=== PATIENT | female | born 1980 | race Caucasian/White ===

== ENCOUNTER 2019-10-20 06:29 | Day surgery (SDC) | payer BC ==
[~2019-10-20 06:29] MED LIST: Lidocaine 1%/Sod Bicarbonate in NS 8.4% 1 ML Syringe IDERM PRN; Sodium Chloride 0.9% 10 ML Syringe FLUSH PRN
[2019-10-20] MEDS: Lactated Ringers 1,000 ML IV SCH ×2 (06:50→12:20)
[2019-10-20] MEDS ORDERED: Lidocaine 1% with EPINEPHrine 1:100,000 20 ML MDV ONE (07:00)
[2019-10-20] MEDS ORDERED: Sodium Chloride 0.9% 20 ML ONE (07:00)
[2019-10-20] MEDS ORDERED: Scopolamine 1.5 MG Transdermal Patch TOP ONE (07:14)
--- NOTE | 2019-10-20 07:16 | PCM.PREANE ---
Preanesthetic Assessment - Procedure Proposed Procedure: TVH - Anesthesia/Transfusion/Family Hx Anesthesia History: Prior Anesthesia Reaction (nausea) Family History of Anesthesia Reaction: No Transfusion History: No Prior Transfusion(s) - Review of Systems General: No Symptoms Pulmonary: No Symptoms Cardiovascular: No Symptoms Gastrointestinal: No Symptoms Neurological: No Symptoms Other: Reports: None - Physical Assessment NPO Status Date: 10/19/19 NPO Status Time: 22:30 Vital Signs: Last Vital Signs Temp 36.7 C 10/20/19 06:40 Pulse 79 10/20/19 06:40 Resp 16 10/20/19 06:40 BP 104/70 10/20/19 06:40 Pulse Ox 98 10/20/19 06:40 Height: 1.63 m Weight: 73.482 kg ASA Class: 2 Mental Status: Alert & Oriented x3 Airway Class: Mallampati = 1 Dentition: Reports: Normal Dentition Thyro-Mental Finger Breadths: 3 Mouth Opening Finger Breadths: 3 ROM/Head Extension: Full Lungs: Clear to Auscultation, Normal Respiratory Effort Cardiovascular: Regular Rate, Regular Rhythm - Lab Values: Laboratory Last Values WBC 5.70 K/mm3 (3.98-10.04) 10/20/19 06:51 RBC 4.29 M/mm3 (3.98-5.22) 10/20/19 06:51 Hgb 12.3 gm/dl (11.2-15.7) 10/20/19 06:51 Hct 38.1 % (34.1-44.9) 10/20/19 06:51 MCV 88.8 fl (79.4-94.8) 10/20/19 06:51 MCH 28.7 pg (25.6-32.2) 10/20/19 06:51 MCHC 32.3 g/dl (32.2-35.5) 10/20/19 06:51 RDW Std Deviation 45.1 fL (36.4-46.3) 10/20/19 06:51 Plt Count 286 K/mm3 (182-369) 10/20/19 06:51 MPV 9.0 fl (9.4-12.3) L 10/20/19 06:51 Neut % (Auto) 57.1 % (34.0-71.1) 10/20/19 06:51 Lymph % (Auto) 32.1 % (19.3-51.7) 10/20/19 06:51 [place] % (Auto) 8.1 % (4.7-12.5) 10/20/19 06:51 Eos % (Auto) 1.8 (0.7-5.8) 10/20/19 06:51 Baso % (Auto) 0.7 % (0.1-1.2) 10/20/19 06:51 Neut # (Auto) 3.26 K/mm3 (1.56-6.13) 10/20/19 06:51 Lymph # (Auto) 1.83 K/mm3 (1.18-3.74) 10/20/19 06:51 [place] # (Auto) 0.46 K/mm3 (0.24-0.36) H 10/20/19 06:51 Eos # (Auto) 0.10 K/mm3 (0.04-0.36) 10/20/19 06:51 Baso # (Auto) 0.04 K/mm3 (0.01-0.08) 10/20/19 06:51 Urine Color Yellow (Yellow) 10/20/19 06:37 Urine Appearance Clear (Clear) 10/20/19 06:37 Urine pH 6.5 (5.0-8.0) 10/20/19 06:37 Ur Specific [place] 1.025 (1.005-1.030) 10/20/19 06:37 Urine Protein Negative (Negative) 10/20/19 06:37 Urine Glucose (UA) Negative (Negative) 10/20/19 06:37 Urine Ketones Negative (Negative) 10/20/19 06:37 Urine Occult Blood Negative (Negative) 10/20/19 06:37 Urine Nitrite Negative (Negative) 10/20/19 06:37 Urine Bilirubin Negative (Negative) 10/20/19 06:37 Urine Urobilinogen 0.2 (0.2-1.0) 10/20/19 06:37 Ur Leukocyte Esterase Negative (Negative) 10/20/19 06:37 Urine RBC 0-5 /hpf (0-5) 10/20/19 06:37 Urine WBC 0-5 /hpf (0-5) 10/20/19 06:37 Ur Epithelial Cells 5-10 /hpf (0-5) H 10/20/19 06:37 Urine Bacteria Few /hpf (FEW) 10/20/19 06:37 Urine Mucus Moderate /hpf (FEW) H 10/20/19 06:37 Urine HCG, Qual Negative (NEGATIVE) 10/20/19 06:37 - Imaging/EKG Impressions: EKG SR @ 65 - Allergies Allergies/Adverse Reactions: Allergies Allergy/AdvReac Type Severity Reaction Status Date / Time No Known Allergies Allergy Verified 10/19/19 14:00 - Anesthesia Plan Pre-Op Medication Ordered: None - Acknowledgements Anesthesia Type Planned: General Anesthesia Pt an Appropriate Candidate for the Planned Anesthesia: Yes Alternatives and Risks of Anesthesia Discussed w Pt/Guardian: Yes Pt/Guardian Understands and Agrees with Anesthesia Plan: Yes PreAnesthesia Questionnaire HEENT History: Reports: Impaired Vision Cardiovascular History: Reports: None Respiratory History: Reports: None Gastrointestinal History: Reports: GERD CUPOLA MELTER History: Reports: , Other (See Below) Other OB/BYN History: X4, x 1, dysmenorrhea, menorrhagia, uterine fibroid, hot flashes, cervical cryosurgery, ovarian cyst Musculoskeletal History: Reports: Other (See Below) Other Musculoskeletal History: right foot surgery Neurological History: Reports: None Psychiatric History: Reports: Anxiety Endocrine/Metabolic History: Reports: Diabetes, Gestational, Other (See Below) Other Endocrine/Metabolic History: thyromegaly Hematologic History: Reports: None Immunologic History: Reports: None Oncologic (Cancer) History: Reports: None Dermatologic History: Reports: Other (See Below) Other Dermatologic History: coccycx abcess, rash - Past Surgical History Head Surgeries/Procedures: Reports: None HEENT Surgical History: Reports: None Cardiovascular Surgical History: Reports: None Respiratory Surgical History: Reports: None GI Surgical History: Reports: Appendectomy, Cholecystectomy Female Surgical History: Reports: Section Male Surgical History: Reports: None Neurological Surgical History: Reports: Laminectomy Oncologic Surgical History: Reports: None Dermatological Surgical History: Reports: None - SUBSTANCE USE Smoking Status *Q: Former Smoker Tobacco Use Within Last Twelve Months: No Second Hand Smoke Exposure: No Days Per Week of Alcohol Use: 2 Number of Drinks Per Day: 1 Total Drinks Per Week: 2 Recreational Drug Use History: No - HOME MEDS Home Medications: Home Meds Acetaminophen [Tylenol] 650 mg PO Q4H PRN 10/19/19 [History] Ibuprofen 200 - 600 mg PO Q6HR PRN 10/19/19 [History] Multivitamin [Daily [place]] 1 tab PO DAILY 10/19/19 [History] - CURRENT (IN HOUSE) MEDS Current Meds: Current Medications Lactated Ringer's (Ringers, Lactated) 1,000 mls @ 125 mls/hr IV ASDIRECTED ROSSI Stop: 10/20/19 23:00 Last Admin: 10/20/19 06:50 Dose: 125 mls/hr Lidocaine/Sodium Bicarbonate (Buffered Lidocaine 1% In Ns 8.4%) 0.25 ml IDERM ONETIME PRN PRN Reason: Prior to IV Start Stop: 10/20/19 18:00 Last Admin: 10/20/19 06:50 Dose: 0.25 ml Sodium Chloride (Saline Flush) 10 ml FLUSH ASDIRECTED PRN PRN Reason: Keep Vein Open Stop: 10/20/19 18:00 Discontinued Medications Sodium Chloride (Normal Saline) Confirm Administered Dose 20 mls @ as directed .ROUTE .STK-MED ONE Stop: 10/20/19 07:01 Lidocaine/Epinephrine (Xylocaine 1% With Epinephrine 1:100,000) Confirm Administered Dose 20 ml .ROUTE .STK-MED ONE Stop: 10/20/19 07:01
[2019-10-20] MEDS ORDERED: Ondansetron 4 MG/2 ML SDV ONE (07:21)
[2019-10-20] MEDS ORDERED: Rocuronium 50 MG/5 ML Vial ONE (07:21)
[2019-10-20] MEDS ORDERED: Propofol 200 MG/20 ML SDV ONE (07:21)
[2019-10-20] MEDS ORDERED: Lidocaine 1% 4 ML ONE (07:22)
[2019-10-20] MEDS ORDERED: Dexamethasone 4 MG/ML 5 ML MDV ONE (07:22)
[2019-10-20] MEDS ORDERED: Ketorolac 30 MG/ML SDV ONE (07:22)
[2019-10-20] MEDS ORDERED: ceFAZolin 1 GM Vial ONE (07:22)
[2019-10-20] MEDS ORDERED: Midazolam 1 MG/ML 2 ML SDV ONE (07:22)
[2019-10-20] MEDS ORDERED: fentaNYL 250 MCG/5 ML SDV ONE (07:22)
[2019-10-20] MEDS ORDERED: Lactated Ringers 1,000 ML ONE (07:34)
[2019-10-20] MEDS ORDERED: HYDROmorphone 0.5 MG/0.5 ML Syringe ONE ×2 (08:01→08:02)
[2019-10-20] MEDS ORDERED: ePHEDrine Sulfate/0.9% NaCl/Pf 25 MG/5 ML SYRINGE IV ONE (08:16)
[2019-10-20] MEDS ORDERED: fentaNYL 100 MCG/2 ML SDV IVPUSH PRN (09:00)
--- NOTE | 2019-10-20 09:01 | PCM.POSTAN ---
POST ANESTHESIA ASSESSMENT - MENTAL STATUS Mental Status: Alert, Oriented - VITAL SIGNS Vital Signs: Last Vital Signs Temp 36.5 C 10/20/19 08:53 Pulse 107 H 10/20/19 08:53 Resp 15 10/20/19 08:53 BP 115/62 10/20/19 08:53 Pulse Ox 98 10/20/19 08:53 - RESPIRATORY Respiratory Status: Respiratory Rate WNL, Airway Patent, O2 Saturation Stable - CARDIOVASCULAR CV Status: Pulse Rate WNL, Blood Pressure Stable - GASTROINTESTINAL GI Status: No Symptoms - PAIN Pain Score: 0 - POST OP HYDRATION Hydration Status: Adequate & Stable - OBSERVATIONS Free Text/Narrative:: no anesthesia complications noted
[2019-10-20] MEDS ORDERED: Ondansetron 4 MG/2 ML SDV IVPUSH PRN (09:02)
[2019-10-20] MEDS ORDERED: Acetaminophen/oxyCODONE 325-5 MG Tab PO PRN (09:02)
[2019-10-20] MEDS ORDERED: Ketorolac 30 MG/ML SDV IVPUSH SCH (09:15)
--- NOTE | 2019-10-20 09:15 | PCM.OPNOTE ---
- General Post-Op/Procedure Note Date of Surgery/Procedure: 10/20/19 Operative Procedure(s): Total vaginal hysterectomy with bilateral salpingectomy Findings: Uterus was enlarged. Fibroids present. Fallopian tubes normal. The ovaries bilaterally functional with corpus luteum cyst on the left side. Pre Op Diagnosis: 1. Menorrhagia. 2. Menorrhagia. 3. Uterine fibroids Post-Op Diagnosis: Same Anesthesia Technique: General ET Tube Other Anesthesia Type: Lidocaine quarter percent with [id number] mL local Primary Surgeon: Monico Garcia Secondary Surgeon: Hoang Block Anesthesia Provider: Mansoor Guadalupe Reason Tennis Desk Team Member Was Necessary: Retraction, assistance, patient safety, quality of care. Pathology: Uterus and fallopian tubes in one specimen container. Fluid Replacement, Intraop: 2,000 EBL in mLs: 350 Complications: None Condition: Good Free Text/Narrative:: Surgery duration: 42 minutes Procedure: The patient was placed in supine position on the operating table. General endotracheal anesthesia was accomplished. After positioning, and adequate prep and drape, the procedure was then performed. Sterile speculum was placed in the vagina and cervix was visualized. Cervix was injected with lidocaine quarter percent with epinephrine-20 mL used. A full circumference incision was made in the cervical epithelium. The bladder was pushed well back off cervix. Posterior cul-de-sac was then entered sharply without problems. Left uterosacral was crossclamped with a Enseal vessel closure system. The left uterosacral and then the right uterosacral ligament pedicles were developed using the Enseal system. The anterior cul-de-sac was then entered without problems and the uterine vasculature, cardinal ligament and broad ligament then developed using Enseal vessel closure system. The uterus was inverted at this time and upper broad ligament fallopian tube pedicles were crossclamped with Dexter clamps. Specimen was totally removed. Both these pedicles were then secured with a 0 vessel closure system. One bleeder on the patient's left side was controlled a Dexter stitch of 0 Monocryl. Left and right fallopian tube was normal in appearance.. Using Enseal vessel closure system each of the tubes was then removed and sent with the specimen. The patient was found to be hemostatically intact at this time. Vaginal cuff was sutured for hemostatic reasons with a running locked suture of 0 Monocryl from the 2 o'clock position to the 10 o'clock position posteriorly. Vaginal cuff was then closed from right to left side with a running locked suture of 0 Monocryl. Patient was returned to supine position and awakened from general endotracheal anesthesia. She tolerated the procedure and left the operating room in satisfactory condition.
[2019-10-20] MEDS ORDERED: Haloperidol Lactate 5 MG/ML SDV IVPUSH SCH (10:41)
--- NOTE | 2019-10-20 11:13 | PCM48HPAN ---
Post Anesthesia Note - EVALUATION WITHIN 48HRS OF ANESTHETIC Vital Signs in Normal Range: Yes Patient Participated in Evaluation: Yes Respiratory Function Stable: Yes Airway Patent: Yes Cardiovascular Function Stable: Yes Hydration Status Stable: Yes Pain Control Satisfactory: Yes Nausea and Vomiting Control Satisfactory: Yes Mental Status Recovered: Yes Vital Signs: Last Vital Signs Temp 36.6 C 10/20/19 10:30 Pulse 72 10/20/19 11:00 Resp 15 10/20/19 11:00 BP 108/67 10/20/19 11:00 Pulse Ox 95 10/20/19 11:00 - COMMENTS/OBSERVATIONS Free Text/Narrative:: no anesthesia complications noted
[2019-10-20] MEDS ORDERED: Ibuprofen 600 MG Tab PO PRN (13:00)
== END 2019-10-20 15:03 | disposition home or self-care (01) ==
LOC: JD.SDS 06:29
PROVIDERS: ATTEND Obstetrics & Gynecology
DX: D25.9 Leiomyoma of uterus, unspecified (principal); N72 Inflammatory disease of cervix uteri; N87.0 Mild cervical dysplasia; N73.6 Female pelvic peritoneal adhesions (postinfective); N83.8 Other noninflammatory disorders of ovary, fallopian tube and broad ligament; Z87.410 Personal history of cervical dysplasia; Z87.891 Personal history of nicotine dependence
CPT/HCPCS: 36415; 58262; 81001; 81025; 85025; 86850; 86870; 86900; 86901; A9270; J0690; J1100; J1170; J1630; J1885; J2001; J2250; J2405; J2704; J3010; J7120; 00944